=== PATIENT | female | born 1990 | race Caucasian/White ===

== ENCOUNTER → 2017-06-05 | Outpatient (CLI) | payer OTHER ==
[2015-10-27 14:51] VITALS: BP 117/78
[2017-06-05 15:46] LABS: BASOPHILS % (AUTO) 0.4 % (0.2-1.0); EOSINOPHILS # (AUTO) 0.1 x10^3/uL (0.0-0.2); EOSINOPHILS % (AUTO) 0.7 % (0.9-2.9); HEMATOCRIT 36.5 % (36.0-47.0); HEMOGLOBIN 12.7 g/dL (12.0-16.0); LYMPHOCYTES # (AUTO) 1.4 X10^3/uL (1.3-2.9); LYMPHOCYTES % (AUTO) 14.5 % (21.0-51.0); MEAN CORPUSCULAR HEMOGLOBIN 30.4 pg (27.0-34.0); MEAN CORPUSCULAR HGB CONC 34.8 g/dL (33.0-35.0); MEAN CORPUSCULAR VOLUME 87.4 fL (80.0-100.0); MEAN PLATELET VOLUME 8.1 fL (7.4-11.0); MONOCYTES # (AUTO) 0.7 x10^3/uL (0.3-0.8); MONOCYTES % (AUTO) 7.5 % (0.0-13.0); NEUTROPHILS # (AUTO) 7.4 x10^3/uL (2.2-4.8); NEUTROPHILS % (AUTO) 76.9 % (42.0-75.0); PLATELET COUNT 193 X10^3/uL (150.0-450.0); RED BLOOD COUNT 4.18 X10^6/uL (3.5-5.4); WHITE BLOOD COUNT 9.7 X10^3/uL (3.6-10.0)
[2017-06-05 15:47] LABS: BILIRUBIN,URINE NEGATIVE (NEGATIVE); BLOOD/HEMOGLOBIN,URINE 1+ (NEGATIVE); GLUCOSE, URINE NEGATIVE (NEGATIVE); KETONES,URINE 1+ (NEGATIVE); LEUKOCYTE ESTERASE ,URINE 3+ (NEGATIVE); NITRITES,URINE NEGATIVE (NEGATIVE); PH,URINE 6.5 (5.0 - 8.0); PROTEIN,URINE 1+ (NEGATIVE); UROBILINOGEN,URINE NORMAL (NORMAL)
[2017-06-05 15:55] LABS: BLOOD UREA NITROGEN 6 mg/dL (7-18); CALCIUM 9.1 mg/dL (8.5-10.1); CARBON DIOXIDE 24.6 mmol/L (21-32); CHLORIDE 103 mmol/L (98-107); COR NA(FOR HYPERGLY) 139 mmol/L (136-145); CREATININE 0.67 mg/dL (0.55-1.02); SODIUM 138 mmol/L (136-145); eGFR BLACK RACES > 60 (>60); eGFR NON BLACK RACES > 60 (>60)
[2017-06-05 15:57] LABS: APPEARANCE,URINE HAZY (CLEAR); BACTERIA,URINE TRACE /HPF (NEGATIVE); COLOR,URINE YELLOW (YELLOW); RBC,URINE 0-2 /HPF (NEGATIVE); SQUAMOUS EPITHELIAL CELL,UR MODERATE /HPF (NEGATIVE)
== END ==
LOC: LAB 15:22
PROVIDERS: ATTEND Specialist
DX: Z01.818 Encounter for other preprocedural examination (principal); Z34.83 Encounter for supervision of other normal pregnancy, third trimester
CPT/HCPCS: 36415; 80048; 81001; 85025; 85610; 85730; 86592; 86850; 86900; 86901; 87086

== ENCOUNTER 2017-06-07 06:24 | Inpatient (IN) | payer OTHER ==
[2017-06-07] MEDS ORDERED: NS 100 ML IV 100 ML IV ONE (06:34)
[2017-06-07] MEDS ORDERED: LR 1000 ML IV 1,000 ML IV ONE ×2 (06:34→07:34)
[2017-06-07] MEDS ORDERED: ANCEF VIAL 1 GM ONE (06:35)
[2017-06-07] MEDS ORDERED: DURAMORPH ONE (07:07)
[2017-06-07] MEDS ORDERED: ANCEF VIAL 1 GM 1 GM in NS 50 ML IV + SPIKE MINIBAG* 50 ML IV PRN (07:13)
[2017-06-07] MEDS ORDERED: D5 1/2 NS 1000 ML 1,000 ML IV SCH (07:13)
[2017-06-07 07:52] LABS: BILIRUBIN,URINE NEGATIVE (NEGATIVE); BLOOD/HEMOGLOBIN,URINE NEGATIVE (NEGATIVE); GLUCOSE, URINE NEGATIVE (NEGATIVE); KETONES,URINE NEGATIVE (NEGATIVE); LEUKOCYTE ESTERASE ,URINE NEGATIVE (NEGATIVE); NITRITES,URINE NEGATIVE (NEGATIVE); PROTEIN,URINE NEGATIVE (NEGATIVE); UROBILINOGEN,URINE NORMAL (NORMAL)
[2017-06-07] MEDS ORDERED: NS IRRIGATION 1000 ML 1,000 ML IR ONE (07:58)
[2017-06-07 08:01] LABS: APPEARANCE,URINE SLIGHTLY HAZY (CLEAR); BACTERIA,URINE TRACE /HPF (NEGATIVE); COLOR,URINE YELLOW (YELLOW); MUCUS,URINE FEW /HPF (NEGATIVE); RBC,URINE 0-1 /HPF (NEGATIVE); SQUAMOUS EPITHELIAL CELL,UR MODERATE /HPF (NEGATIVE)
[2017-06-07] MEDS ORDERED: D5 1/2 NS 1L W PITOCIN 20 UNITS/L 20 UNITS/1,000 ML BAG IV ONE (08:10)
[2017-06-07] MEDS ORDERED: REGLAN INJ 10 MG VIAL IVP PRN ×2 (08:49→09:30)
[2017-06-07] MEDS ORDERED: ZOFRAN INJ 4 MG VIAL IVP PRN (08:49)
[2017-06-07] MEDS ORDERED: BENADRYL INJ 50 MG VIAL IVP PRN ×2 (08:49→09:30)
[2017-06-07] MEDS ORDERED: PHENERGAN INJ 25 MG IVP PRN (08:49)
[2017-06-07] MEDS ORDERED: TORADOL 30 MG VIAL IVP PRN (09:30)
[2017-06-07] MEDS ORDERED: D5 1/2 NS 1000 ML 1,000 ML with PITOCIN 20 UNITS IV SCH ×2 (09:30)
[2017-06-07] MEDS ORDERED: ADACEL TDaP IM ONE (09:30)
[2017-06-07] MEDS ORDERED: NARCAN INJ IVP PRN (09:30)
[2017-06-07] MEDS ORDERED: PERCOCET TAB 5/325 MG PO PRN (09:30)
[2017-06-07] MEDS ORDERED: XYLOCAINE 1 % (PLAIN) ONE (10:09)
[2017-06-07] MEDS ORDERED: MARCAINE 0.25% INJ ONE (10:09)
[2017-06-07] MEDS: PRENATAL PLUS PO SCH (10:30)
[2017-06-07] MEDS: ZANTAC PO SCH ×2 (10:30→23:32)
[2017-06-07] MEDS: ZOFRAN INJ 4 MG VIAL IVP PRN ×2 (10:31→18:08)
[2017-06-07] MEDS ORDERED: VERSED ONE (13:02)
[2017-06-07] MEDS ORDERED: DIPRIVAN VIAL ONE (13:02)
[2017-06-07] MEDS ORDERED: PITOCIN ONE (13:02)
[2017-06-07] MEDS ORDERED: EPHEDRINE SULFATE INJ ONE (13:02)
[2017-06-08] MEDS: ZANTAC PO SCH ×3 (01:59→21:09)
[2017-06-08 05:23] LABS: HEMATOCRIT 34.7 % (36.0-47.0); HEMOGLOBIN 11.8 g/dL (12.0-16.0)
[2017-06-08] MEDS: PRENATAL PLUS PO SCH (08:02)
[2017-06-08] MEDS: COLACE CAP 100 MG PO SCH ×2 (10:07→21:09)
[2017-06-08] MEDS: PERCOCET TAB 5/325 MG PO PRN ×2 (11:39→23:55)
[2017-06-08] MEDS: BACTROBAN OINT TOP SCH ×2 (14:11→21:09)
[2017-06-08] MEDS: MOTRIN TAB 800 MG PO PRN (16:06)
[2017-06-08] MEDS: MYLICON TAB 80 MG CHEW PO PRN (23:55)
[2017-06-09] MEDS: BACTROBAN OINT TOP SCH (05:29)
[2017-06-09] MEDS: PERCOCET TAB 5/325 MG PO PRN (06:10)
[2017-06-09] MEDS: ZANTAC PO SCH (08:14)
[2017-06-09] MEDS: MOTRIN TAB 800 MG PO PRN (08:14)
[2017-06-09] MEDS: COLACE CAP 100 MG PO SCH (08:14)
[2017-06-09] MEDS: PRENATAL PLUS PO SCH (08:14)
[2017-06-09] MEDS: MYLICON TAB 80 MG CHEW PO PRN (08:15)
[2017-06-09 09:51] VITALS: BP 116/78
== END 2017-06-09 12:00 | disposition home or self-care (01) | DRG 775 ==
LOC: LD 06:24 → MED/SURG 09:28
PROVIDERS: ADMIT Specialist; ATTEND Specialist
PROC: 10D00Z1 Extraction of Products of Conception, Low, Open Approach (ICD-10-PCS; principal; 2017-06-07 07:30)
DX: O41.03X0 Oligohydramnios, third trimester, not applicable or unspecified (principal); Z37.0 Single live birth; O34.211 Maternal care for low transverse scar from previous cesarean delivery; N85.8 Other specified noninflammatory disorders of uterus; Z3A.38 38 weeks gestation of pregnancy
CPT/HCPCS: 36415; 81001; 85014; 85018; 94640; A4216; S0020; S0197; J0690; J1885; J2001; J2250; J2405; J2590; J2765; J3490; J7120